=== PATIENT | male | born 1970 ===

== ENCOUNTER 2019-09-22 19:17 | Emergency (ER) | payer OTHER ==
[2019-09-22] MEDS ORDERED: traMADol TAB* 50 MG PO ONE (19:56)
[2019-09-22] MEDS ORDERED: Cyclobenzaprine TAB* 10 MG PO ONE (19:56)
[2019-09-22] MEDS ORDERED: Mupirocin 2% OINT* TUBE TOPICAL ONE (19:56)
--- NOTE | 2019-09-22 20:46 | UC ---
Back Pain HPI - HPI Summary HPI Summary: [place]. [place] on a rock on the right side of his back. The next day he had severe pain and he went to a hospital in [place] recommended a series of x-rays and told him it was muscle strain. He takes Flexeril and tramadol routinely and improved. He has been in [place] for a few days without his medications and the pain has begun to recur. He is picking up his mother denisha Chan and then will be going to [place] where he will have access to his medications. He is a little constipated but has been urinating normally. - History of Current Complaint Chief Complaint: UCTrauma Stated Complaint: MUSCLE PAIN Time Seen by Provider: 09/22/19 19:42 Onset/Duration: Gradual Onset, Lasting Days Timing: Constant Severity Initially: Mild Severity Currently: Mild Pain Intensity: 0 Pain Scale Used: 0-10 Numeric Character: Sharp Aggravating Factor(s): Movement, Lifting, Bending Alleviating Factor(s): Rest Associated Signs And Symptoms: Positive: Negative - Allergies/Home Medications Allergies/Adverse Reactions: Allergies Allergy/AdvReac Type Severity Reaction Status Date / Time morphine Allergy Altered Verified 09/22/19 19:32 Mental Status Home Medications: Home Medications Cyclobenzaprine TAB* [Flexeril 10 MG TAB*] 5 mg PO BID PRN 09/22/19 [History Confirmed 09/22/19] traMADol TAB* [Ultram*] 50 mg PO Q6HR PRN 09/22/19 [History Confirmed 09/22/19] PMH/Surg Hx/FS Hx/Imm Hx Previously Healthy: Yes - Surgical History Surgical History: Yes Surgery Procedure, Year, and Place: double hernia repair - Social History Alcohol Use: Weekly Substance Use Type: None Smoking Status (MU): Former Smoker Review of Systems All Other Systems Reviewed And Are Negative: Yes Physical Exam - Summary Physical Exam Summary: He is nontoxic in appearance with stable vital signs aside from mild tachycardia. Triage Information Reviewed: Yes Appearance: Well-Appearing, No Pain Distress - When he moves certain ways he appears to have pain. Vital Signs: Initial Vital Signs Temp 98.1 F 09/22/19 19:26 Pulse 115 09/22/19 19:26 Resp 16 09/22/19 19:26 BP 128/96 09/22/19 19:26 Pulse Ox 100 09/22/19 19:26 Vital Signs Reviewed: Yes Neck exam: Normal Respiratory Exam: Normal Cardiovascular Exam: Normal Abdominal Exam: Normal Musculoskeletal Exam: Other - Tender the posterolateral right side of his chest at the floating rib area. Neurological Exam: Normal Back Pain Course/Dx - Course Course Of Treatment: I think this is just flaring up his original injury as he's been without his medications for couple days. I sent him home with a dose of Flexeril and tramadol which she will take when he gets to the airport. He states that his mother will drive him to [place]. - Differential Dx/Diagnosis Provider Diagnosis: Muscle strain of chest wall Discharge ED - Sign-Out/Discharge Documenting (check all that apply): Patient Departure All imaging exams completed and their final reports reviewed: No Studies - Discharge Plan Condition: Stable Disposition: HOME Patient Education Materials: Muscle Strain (ED) Referrals: No Primary Care Phys,NOPCP [Primary Care Provider] - - Billing Disposition and Condition Condition: STABLE Disposition: Home
== END 2019-09-22 20:10 | disposition home or self-care (01) ==
LOC: UCEAST 19:17
DX: S29.011A Strain of muscle and tendon of front wall of thorax, initial encounter (principal); Z88.5 Allergy status to narcotic agent; Z87.891 Personal history of nicotine dependence; W16.112A Fall into natural body of water striking water surface causing other injury, initial encounter; Y92.9 Unspecified place or not applicable
CPT/HCPCS: 99203; A9270-GY; G0463